=== PATIENT | female | born 1965 | race Hispanic/Latino ===

== ENCOUNTER 2020-10-28 03:35 | Emergency (ER) | payer BC ==
[2020-10-28 05:18] VITALS: BP 145/95
[2020-10-28] MEDS ORDERED: IBUPROFEN 400 MG TAB PO ONE (05:43)
[2020-10-28] MEDS ORDERED: hydrOXYzine PAMOATE 25 MG CAP PO ONE (05:43)
--- NOTE | 2020-10-28 05:43 | Emergency Department Report ---
ED General Adult HPI - General Chief complaint: Pain General Stated complaint: OVER STRESSED PAIN EVERYWHERE Source: patient Mode of arrival: Ambulatory Limitations: No Limitations - History of Present Illness Initial comments: Patient is a 55-year-old white female with a history of chronic anxiety and depression who presents to the ED with diffuse body aches and pains, stating "I am extremely stressed because of my family trying to steal my money" for over 3 months. Patient states that she currently has no place to live because of stressful family situation and states that she would like a prescription of Klonopin or Xanax "to calm her nerves". Patient denies chest pain, shortness of breath, dizziness, syncope, nausea and vomiting, headache, fever and chills, change in vision, suicidal or homicidal ideation, hallucinations or cough. MD Complaint: Anxious, stressed out due to family problems -: Gradual, month(s) (3) Radiation: non-radiation Severity scale (0 -10): 4 Quality: aching Consistency: constant Improves with: none Worsens with: none Associated Symptoms: denies other symptoms. denies: confusion, chest pain, cough, diaphoresis, headaches, malaise, nausea/vomiting, rash, seizure, shortness of breath, syncope, weakness Treatments Prior to Arrival: none - Related Data Previous Rx's Medication Instructions Recorded Last Taken Type Amoxicillin [Amoxicillin TAB] 875 mg PO BID #20 tablet 04/06/13 Unknown Rx Fluticasone Propionate [Flonase] 16 gm NS QDAY #1 spray.susp 04/06/13 Unknown Rx Prednisone 60 mg PO QDAY #9 tablet 04/06/13 Unknown Rx traMADoL [Ultram] 50 mg PO Q4HR PRN #15 tablet 04/06/13 Unknown Rx hydrOXYzine PAMOATE [Vistaril] 25 mg PO Q6HR PRN #30 capsule 10/28/20 Unknown Rx Allergies Allergy/AdvReac Type Severity Reaction Status Date / Time No Known Allergies Allergy Verified 04/06/13 06:27 ED Review of Systems ROS: Stated complaint: OVER STRESSED PAIN EVERYWHERE Other details as noted in HPI Constitutional: denies: chills, fever Eyes: denies: eye pain, eye discharge, vision change ENT: denies: ear pain, throat pain Respiratory: denies: cough, shortness of breath, wheezing Cardiovascular: denies: chest pain, palpitations Endocrine: no symptoms reported Gastrointestinal: denies: abdominal pain, nausea, diarrhea Genitourinary: denies: urgency, dysuria, discharge Musculoskeletal: arthralgia, myalgia. denies: back pain, joint swelling Skin: denies: rash, lesions Neurological: denies: headache, weakness, paresthesias Psychiatric: anxiety. denies: depression Hematological/Lymphatic: denies: easy bleeding, easy bruising ED Past Medical Hx - Past Medical History Previous Medical History?: No Hx Psychiatric Treatment: Yes (Anxiety and depression) - Surgical History Past Surgical History?: No - Social History Smoking Status: Current Every Day Smoker Substance Use Type: None - Medications Home Medications: Home Medications Medication Instructions Recorded Confirmed Last Taken Type Amoxicillin [Amoxicillin TAB] 875 mg PO BID #20 tablet 04/06/13 Unknown Rx Fluticasone Propionate [Flonase] 16 gm NS QDAY #1 spray.susp 04/06/13 Unknown Rx Prednisone 60 mg PO QDAY #9 tablet 04/06/13 Unknown Rx traMADoL [Ultram] 50 mg PO Q4HR PRN #15 tablet 04/06/13 Unknown Rx hydrOXYzine PAMOATE [Vistaril] 25 mg PO Q6HR PRN #30 capsule 10/28/20 Unknown Rx ED Physical Exam - General Limitations: No Limitations General appearance: alert, in no apparent distress - Head Head exam: Present: atraumatic, normocephalic, normal inspection - Eye Eye exam: Present: normal appearance, PERRL, EOMI Pupils: Present: normal accommodation - ENT ENT exam: Present: normal exam, normal orophraynx, mucous membranes moist, TM's normal bilaterally, normal external ear exam - Neck Neck exam: Present: normal inspection, full ROM - Respiratory Respiratory exam: Present: normal lung sounds bilaterally. Absent: respiratory distress, wheezes, rales, stridor, chest wall tenderness, accessory muscle use, decreased breath sounds, prolonged expiratory - Cardiovascular Cardiovascular Exam: Present: normal rhythm, tachycardia, normal heart sounds. Absent: systolic murmur, diastolic murmur, rubs, gallop - GI/Abdominal GI/Abdominal exam: Present: soft, normal bowel sounds. Absent: tenderness, guarding, rebound, hyperactive bowel sounds, organomegaly - Extremities Exam Extremities exam: Present: normal inspection, full ROM, normal capillary refill - Back Exam Back exam: Present: normal inspection, full ROM. Absent: tenderness, CVA tenderness (R), CVA tenderness (L), muscle spasm, paraspinal tenderness - Neurological Exam Neurological exam: Present: alert, oriented X3, CN II-XII intact, normal gait, reflexes normal - Psychiatric Psychiatric exam: Present: normal affect, depressed, anxious. Absent: homicidal ideation, suicidal ideation - Skin Skin exam: Present: warm, dry, intact, normal color. Absent: rash ED Course Vital Signs 10/28/20 05:16 Temperature 97.9 F Pulse Rate 105 H Respiratory 18 Rate Blood Pressure 145/95 O2 Sat by Pulse 99 Oximetry ED Medical Decision Making - Medical Decision Making This is a 55-year-old white female with a history of chronic anxiety and depression who presents to the ED with diffuse body aches and pains, stating "I am extremely stressed because of my family trying to steal my money" for over 3 months. Patient states that she currently has no place to live because of stressful family situation and states that she would like a prescription of Klonopin or Xanax "to calm her nerves". In the ED, patient is alert and oriented x3 and is not in any distress, anxious and tachycardic in triage. Patient was treated for pain and also given Vistaril in the ED. Patient will discharge home and given a referral to primary care physician and mental health clinic for further evaluation. Patient was advised to follow-up with a primary care physician in 3 to 5 days for reevaluation. Patient was advised to return to the ED immediately if symptoms get worse. - Differential Diagnosis Anxiety; panic attacks; chronic depression; chronic pain Critical care attestation.: If time is entered above; I have spent that time in minutes in the direct care of this critically ill patient, excluding procedure time. ED Disposition Clinical Impression: Anxiety as acute reaction to gross stress Chronic pain Qualifiers: Chronic pain type: chronic pain syndrome Qualified Code(s): G89.4 - Chronic pain syndrome Disposition: TO HOME OR SELFCARE Is pt being admited?: No Does the pt Need Aspirin: No Condition: Stable Instructions: Generalized Anxiety Disorder, Adult, Pain Without a Known Cause Additional Instructions: Take medication with food, drink plenty of fluids and follow-up with your primary care physician in 3 to 5 days for reevaluation. Return to the ED immediately if symptoms get worse. Prescriptions: hydrOXYzine PAMOATE [Vistaril] 25 mg PO Q6HR PRN #30 capsule PRN Reason: Anxiety Referrals: [facility] [Provider Group] - 3-5 Days [facility] [Outside] - 3-5 Days Time of Disposition: 05:42 Print Language: BENINESE
== END 2020-10-28 06:15 | disposition home or self-care (01) ==
LOC: ED 03:35
DX: F41.9 Anxiety disorder, unspecified (principal); G89.29 Other chronic pain; F32.9 Major depressive disorder, single episode, unspecified; F17.200 Nicotine dependence, unspecified, uncomplicated; Z79.899 Other long term (current) drug therapy
CPT/HCPCS: 99282; Q0177

== ENCOUNTER 2021-03-29 06:41 | Emergency (ER) | payer SELFPAY ==
--- NOTE | 2021-03-29 06:52 | Emergency Department Report ---
ED Neck Pain/Injury HPI - General Chief Complaint: Neck Pain/Injury Stated Complaint: SHOULDER AND NECK PAIN Time Seen by Provider: 03/29/21 06:50 Mode of arrival: Ambulatory Limitations: No Limitations - History of Present Illness Initial Comments: Patient presents with neck pain and back pain. She states that she was at work on 21 March. She was told that she had to lift a 70 pound box above her head. She states that she hurt her neck doing this. She is subsequent developed ongoing pain in the neck and upper back. She states that her neck feels like it is "moving." She states her neck "snaps and pops." She states that the pain radiates into her upper back. She states that she has lower back pain. She has not been able to sleep. She states that she just has a headache and just cannot get comfortable. She tried to rest but that did not help. She came here for evaluation. Patient states that she knows that there were some OSHA standards that were violated. She then goes on to state that multiple people are stealing from her job. Regardless, she is here for this pain. She has not taken anything for it as of yet. She has not seen work comp. - Related Data Previous Rx's Medication Instructions Recorded Last Taken Type Amoxicillin [Amoxicillin TAB] 875 mg PO BID #20 tablet 04/06/13 Unknown Rx Fluticasone Propionate [Flonase] 16 gm NS QDAY #1 spray.susp 04/06/13 Unknown Rx Prednisone 60 mg PO QDAY #9 tablet 04/06/13 Unknown Rx traMADoL [Ultram] 50 mg PO Q4HR PRN #15 tablet 04/06/13 Unknown Rx hydrOXYzine PAMOATE [Vistaril] 25 mg PO Q6HR PRN #30 capsule 10/28/20 Unknown Rx Ibuprofen [Motrin] 600 mg PO Q8H PRN #30 tablet 03/29/21 Unknown Rx Metaxalone [Skelaxin] 800 mg PO TID #9 tablet 03/29/21 Unknown Rx Allergies Allergy/AdvReac Type Severity Reaction Status Date / Time No Known Allergies Allergy Verified 04/06/13 06:27 ED Review of Systems ROS: Stated complaint: SHOULDER AND NECK PAIN Other details as noted in HPI Comment: All other systems reviewed and negative Constitutional: denies: fever Eyes: denies: vision change ENT: denies: epistaxis Respiratory: denies: cough Cardiovascular: denies: chest pain Endocrine: denies: unexplained weight loss Gastrointestinal: denies: hematemesis Genitourinary: denies: hematuria Musculoskeletal: as per HPI Skin: denies: rash Neurological: as per HPI Hematological/Lymphatic: denies: easy bruising ED Past Medical Hx - Past Medical History Previous Medical History?: Yes Hx Psychiatric Treatment: Yes (Anxiety and depression) - Surgical History Past Surgical History?: No - Family History Family history: other (Anxiety) - Social History Smoking Status: Current Every Day Smoker (We discussed tobacco cessation x3 mi nutes) Substance Use Type: None - Medications Home Medications: Home Medications Medication Instructions Recorded Confirmed Last Taken Type Amoxicillin [Amoxicillin TAB] 875 mg PO BID #20 tablet 04/06/13 Unknown Rx Fluticasone Propionate [Flonase] 16 gm NS QDAY #1 spray.susp 04/06/13 Unknown Rx Prednisone 60 mg PO QDAY #9 tablet 04/06/13 Unknown Rx traMADoL [Ultram] 50 mg PO Q4HR PRN #15 tablet 04/06/13 Unknown Rx hydrOXYzine PAMOATE [Vistaril] 25 mg PO Q6HR PRN #30 capsule 10/28/20 Unknown Rx Ibuprofen [Motrin] 600 mg PO Q8H PRN #30 tablet 03/29/21 Unknown Rx Metaxalone [Skelaxin] 800 mg PO TID #9 tablet 03/29/21 Unknown Rx ED Physical Exam - General Limitations: No Limitations, Other (Pulse ox noted normal at 97%) General appearance: alert, in no apparent distress, other (Patient has psychomotor agitation with pressured speech and flight of ideas. She cannot sit still. Behavior is consistent with tweaking) - Head Head exam: Present: atraumatic, normocephalic - Eye Eye exam: Present: normal appearance, EOMI - ENT ENT exam: Present: normal orophraynx, normal external ear exam - Neck Neck exam: Present: normal inspection, tenderness (Diffuse paraspinous). Absent: meningismus - Respiratory Respiratory exam: Present: normal lung sounds bilaterally. Absent: respiratory distress - Cardiovascular Cardiovascular Exam: Present: regular rate (106 on exam), normal rhythm - GI/Abdominal GI/Abdominal exam: Present: soft. Absent: tenderness - Extremities Exam Extremities exam: Present: full ROM, normal capillary refill - Back Exam Back exam: Present: full ROM, paraspinal tenderness (Diffuse thoracic and lumbar). Absent: vertebral tenderness - Neurological Exam Neurological exam: Present: alert, oriented X3, CN II-XII intact, normal gait, reflexes normal, other (Negative straight leg raise). Absent: motor sensory deficit - Psychiatric Psychiatric exam: Present: anxious, other (As above) - Skin Skin exam: Present: warm, dry ED Course - Reevaluation(s) Reevaluation #1: 03/29/21 07:07 Patient was discharged ED Medical Decision Making - Medical Decision Making Patient presents with a remote neck and back injury from lifting. I have no concern for fracture as she had no direct trauma. Plain films would not be beneficial at this time. Patient denies any neurologic symptoms and has no neurologic deficit. She can follow-up with work comp for consideration of MRI as needed and indicated. She does have some evidence of psychomotor agitation with pressured speech and flight of ideas. Regardless, she is not suicidal or homicidal. She is not responding to extraneous stimuli. She is not delusional. I believe this can be managed as an outpatient. Whether there is some other contributing factor in that realm is unclear. Regardless, she does not need emergent surgery and certainly does not have symptoms that would suggest cord injury, cauda equina, or compression. Critical Care Time: No Critical care attestation.: If time is entered above; I have spent that time in minutes in the direct care of this critically ill patient, excluding procedure time. ED Disposition Clinical Impression: Upper back strain Qualifiers: Encounter type: initial encounter Qualified Code(s): S29.012A - Strain of muscle and tendon of back wall of thorax, initial encounter Acute cervical myofascial strain Qualifiers: Encounter type: initial encounter Qualified Code(s): S16.1XXA - Strain of muscle, fascia and tendon at neck level, initial encounter Disposition: HOME / SELF CARE / HOMELESS Is pt being admited?: No Condition: Stable Instructions: How to Use Cold Therapy, [id number], Muscle Strain, [id number] Additional Instructions: Try ice and heat. Drink fluids. Follow-up with your Workmen's Comp. Return for any problems or concerns. Use medication as discussed and directed. Prescriptions: Ibuprofen [Motrin] 600 mg PO Q8H PRN #30 tablet PRN Reason: Pain Metaxalone [Skelaxin] 800 mg PO TID #9 tablet Referrals: PRIMARY CARE, [Referring] - 3-5 Days
[2021-03-29 07:24] VITALS: BP 130/85
== END 2021-03-29 07:24 | disposition home or self-care (01) ==
LOC: ED 06:41
DX: S29.012A Strain of muscle and tendon of back wall of thorax, initial encounter (principal); S16.1XXA Strain of muscle, fascia and tendon at neck level, initial encounter; F17.200 Nicotine dependence, unspecified, uncomplicated; F41.9 Anxiety disorder, unspecified; X58.XXXA Exposure to other specified factors, initial encounter; Y93.89 Activity, other specified; Y92.89 Other specified places as the place of occurrence of the external cause; Y99.8 Other external cause status
CPT/HCPCS: 99282

== ENCOUNTER 2021-06-28 21:37 | Emergency (ER) | payer SELFPAY ==
[2021-06-28 23:11] LABS: Basophils # (Auto) 0.1 K/mm3 (0.0-0.1); Basophils % (Auto) 1.2 % (0.0-1.8); Eosinophils # (Auto) 0.1 K/mm3 (0.0-0.4); Eosinophils % (Auto) 1.1 % (0.0-4.3); Hematocrit 37.9 % (30.3-42.9); Lymphocytes # (Auto) 3.4 K/mm3 (1.2-5.4); Lymphocytes % (Auto) 34.9 % (13.4-35.0); Mean Corpuscular HGB Conc 34 % (30-34); Mean Corpuscular Volume 94 fl (79-97); Monocytes # (Auto) 0.9 K/mm3 (0.0-0.8); Monocytes % (Auto) 8.9 % (0.0-7.3); Platelet Count 331 K/mm3 (140-440); Red Blood Count 4.04 M/mm3 (3.65-5.03); Red Cell Distribution Width 12.4 % (13.2-15.2)
[2021-06-28 23:25] LABS: Blood Urea Nitrogen 12 mg/dL (7-17); Hemolysis Index 4
[2021-06-28 23:30] LABS: BUN/Creatinine Ratio 17
--- NOTE | 2021-06-29 02:55 | Emergency Department Report ---
ED Psych HPI - General Chief Complaint: Psych Stated Complaint: CHEST PAIN ,STRESS Time Seen by Provider: 06/28/21 22:36 Source: patient Mode of arrival: Stretcher Limitations: No Limitations - History of Present Illness Initial Comments: Crying uncontrollably. Stating that she is very stressed and at times she feels that someone is out to get her. Denies SI nor HI. 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 MD Complaint: feels depressed, other (paranoid ) -: Gradual, days(s) Associated Psychiatric Symptoms: depression, delusions History of same: Yes Quality: constant Improves With: none Worsens With: none Associated Symptoms: denies: confusion, headache - Related Data Previous Rx's Medication Instructions Recorded Last Taken Type Amoxicillin [Amoxicillin TAB] 875 mg PO BID #20 tablet 04/06/13 Unknown Rx Fluticasone Propionate [Flonase] 16 gm NS QDAY #1 spray.susp 04/06/13 Unknown Rx Prednisone 60 mg PO QDAY #9 tablet 04/06/13 Unknown Rx traMADoL [Ultram] 50 mg PO Q4HR PRN #15 tablet 04/06/13 Unknown Rx hydrOXYzine PAMOATE [Vistaril] 25 mg PO Q6HR PRN #30 capsule 10/28/20 Unknown Rx Ibuprofen [Motrin] 600 mg PO Q8H PRN #30 tablet 03/29/21 Unknown Rx Metaxalone [Skelaxin] 800 mg PO TID #9 tablet 03/29/21 Unknown Rx Allergies Allergy/AdvReac Type Severity Reaction Status Date / Time No Known Allergies Allergy Verified 04/06/13 06:27 ED Review of Systems ROS: Stated complaint: CHEST PAIN ,STRESS Other details as noted in HPI Constitutional: denies: chills, fever Eyes: denies: eye pain, eye discharge, vision change ENT: denies: ear pain, throat pain Respiratory: denies: cough, shortness of breath, wheezing Cardiovascular: denies: chest pain, palpitations Endocrine: no symptoms reported Gastrointestinal: denies: abdominal pain, nausea, diarrhea Genitourinary: denies: urgency, dysuria, discharge Musculoskeletal: denies: back pain, joint swelling, arthralgia Skin: denies: rash, lesions Neurological: denies: headache, weakness, paresthesias Psychiatric: denies: anxiety, depression Hematological/Lymphatic: denies: easy bleeding, easy bruising ED Past Medical Hx - Past Medical History Previous Medical History?: Yes Hx Psychiatric Treatment: Yes (Anxiety and depression, PTSD) - Surgical History Past Surgical History?: No - Social History Smoking Status: Never Smoker Substance Use Type: None - Medications Home Medications: Home Medications Medication Instructions Recorded Confirmed Last Taken Type Amoxicillin [Amoxicillin TAB] 875 mg PO BID #20 tablet 04/06/13 Unknown Rx Fluticasone Propionate [Flonase] 16 gm NS QDAY #1 spray.susp 04/06/13 Unknown Rx Prednisone 60 mg PO QDAY #9 tablet 04/06/13 Unknown Rx traMADoL [Ultram] 50 mg PO Q4HR PRN #15 tablet 04/06/13 Unknown Rx hydrOXYzine PAMOATE [Vistaril] 25 mg PO Q6HR PRN #30 capsule 10/28/20 Unknown Rx Ibuprofen [Motrin] 600 mg PO Q8H PRN #30 tablet 03/29/21 Unknown Rx Metaxalone [Skelaxin] 800 mg PO TID #9 tablet 03/29/21 Unknown Rx ED Physical Exam - General Limitations: No Limitations General appearance: alert, anxious, other (crying ) - Head Head exam: Present: atraumatic, normocephalic - Eye Eye exam: Present: normal appearance - ENT ENT exam: Present: mucous membranes moist - Neck Neck exam: Present: normal inspection - Respiratory Respiratory exam: Present: normal lung sounds bilaterally. Absent: respiratory distress - Cardiovascular Cardiovascular Exam: Present: regular rate, normal rhythm. Absent: systolic murmur, diastolic murmur, rubs, gallop - GI/Abdominal GI/Abdominal exam: Present: soft, normal bowel sounds - Extremities Exam Extremities exam: Present: normal inspection - Back Exam Back exam: Present: normal inspection - Neurological Exam Neurological exam: Present: alert, oriented X3 - Psychiatric Psychiatric exam: Present: depressed, anxious, other (delusions ) - Expanded Psychiatric Exam Expanded Focused psych exam: Present: paranoid, restlessness - Skin Skin exam: Present: warm, dry, intact, normal color. Absent: rash ED Course Vital Signs 06/28/21 06/28/21 06/28/21 21:56 22:04 22:14 Temperature 98.2 F 98.6 F Pulse Rate 99 H 88 Respiratory 18 20 Rate Blood Pressure 143/79 Blood Pressure [Left] Blood Pressure 133/80 [Right] O2 Sat by Pulse 100 100 100 Oximetry 06/29/21 06/29/21 06/29/21 02:35 08:58 11:12 Temperature 98.8 F 97.9 F Pulse Rate 79 64 Respiratory 16 16 Rate Blood Pressure Blood Pressure [Left] Blood Pressure 110/68 114/79 [Right] O2 Sat by Pulse 98 99 98 Oximetry 06/29/21 06/29/21 06/29/21 20:34 20:36 21:38 Temperature 98.7 F Pulse Rate 63 Respiratory 20 Rate Blood Pressure Blood Pressure 92/43 92/46 [Left] Blood Pressure [Right] O2 Sat by Pulse 95 100 Oximetry 06/30/21 06/30/21 06/30/21 02:31 11:10 20:10 Temperature 98.3 F 97.6 F 98.8 F Pulse Rate 54 L 79 63 Respiratory 16 18 17 Rate Blood Pressure Blood Pressure 124/88 112/72 107/60 [Left] Blood Pressure [Right] O2 Sat by Pulse 100 99 100 Oximetry 07/01/21 02:17 Temperature 97.9 F Pulse Rate 65 Respiratory 16 Rate Blood Pressure Blood Pressure 137/74 [Left] Blood Pressure [Right] O2 Sat by Pulse 100 Oximetry ED Medical Decision Making - Lab Data Result diagrams: 06/28/21 22:36 06/28/21 22:36 Critical care attestation.: If time is entered above; I have spent that time in minutes in the direct care of this critically ill patient, excluding procedure time. ED Disposition Clinical Impression: Depression, Delusions Disposition: 30 STILL A PATIENT Is pt being admited?: No Does the pt Need Aspirin: No Condition: Stable Referrals: JENNA CORONEL MD [Primary Care Provider] - 3-5 Days
--- NOTE | 2021-06-29 10:14 | Consultation ---
History of Present Illness - Reason for Consult Consult date: 06/29/21 Reason for consult: delusional - History of Present Psychiatric Illness HPI: Crying uncontrollably. Stating that she is very stressed and at times she feels that someone is out to get her. Denies SI nor HI. 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 The patient was seen today. She is hyperverbal, paranoid and having grandiose delusions. She says she's been overwhelmed and stressed and can't handle people. The patient says people are trying to blow the house up. She then rants off names. 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 She says she's unemployed, but then says "I actually own way too much stuff." The patient denies past psych history or being on any psych meds. She denies SI/HI or hallucinations of any kind. She denies any illicit drug use outside of THC. She denies alcohol or nicotine. She first says she's homeless, she then says "not really though if I own all those properties." PAST PSYCHIATRIC HISTORY Diagnoses: Denies Suicide attempts or Self-harm behavior: Denies Prior psychiatric hospitalizations: Denies Substance Abuse history: Denies Previous psychiatric medications tried: Denies Outpatient treatment: Denies PAST MEDICAL HISTORY: None reported Family Psychiatric History: None reported or documented SOCIAL HISTORY Living arrangement: homeless Marital status: Single Employment status: Unemployed REVIEW OF SYSTEMS Constitutional: Negative for weight loss ENT: Negative for stridor Respiratory: Negative for cough or hemoptysis All other systems reviewed and are negative MENTAL STATUS EXAMINATION General Appearance and Behavior: Age appropriate, good hygiene, wearing appropriate clothes, good eye contact, anxious, cooperative Cooperation: Participating/engaged, but Guarded Psychomotor Behavior: Psychomotor normal Mood: stressed Affect and affective range: congruent with stated mood Thought Process: disorganized Thought Content: delusions Speech: hyperverbal Suicidal Ideation: Denies Homicidal Ideation: Denies Hallucinations: Denies Delusions: None elicited Impulse Control: Normal Insight and Judgment: Limited insight and judgment Memory: Limited Attention: attentive Orientation: Alert, oriented Assessment and Plan Delusional Disorder Treatment Plan 1013 Olanzapine 5mg po daily Doxepin 10mg po qhs Vistaril 50mg po BID prn anxiety Sitter: per primary Medical: defer to primary Disposition: recommend acute psychiatric inpatient treatment Will follow. Thanks Case staffed with Dr. Dc Medications and Allergies Allergies Allergy/AdvReac Type Severity Reaction Status Date / Time No Known Allergies Allergy Verified 04/06/13 06:27 Home Medications Medication Instructions Recorded Confirmed Last Taken Type Amoxicillin [Amoxicillin TAB] 875 mg PO BID #20 tablet 04/06/13 Unknown Rx Fluticasone Propionate [Flonase] 16 gm NS QDAY #1 spray.susp 04/06/13 Unknown Rx Prednisone 60 mg PO QDAY #9 tablet 04/06/13 Unknown Rx traMADoL [Ultram] 50 mg PO Q4HR PRN #15 tablet 04/06/13 Unknown Rx hydrOXYzine PAMOATE [Vistaril] 25 mg PO Q6HR PRN #30 capsule 10/28/20 Unknown Rx Ibuprofen [Motrin] 600 mg PO Q8H PRN #30 tablet 03/29/21 Unknown Rx Metaxalone [Skelaxin] 800 mg PO TID #9 tablet 03/29/21 Unknown Rx Mental Status Exam - Vital signs Last Vital Signs Temp 98.8 F 06/29/21 02:35 Pulse 79 06/29/21 02:35 Resp 16 06/29/21 02:35 BP 110/68 06/29/21 02:35 Pulse Ox 99 06/29/21 08:58 Results Result Diagrams: 06/28/21 22:36 06/28/21 22:36 Abnormal lab results 06/28/21 06/28/21 06/28/21 Range/Units 22:36 22:36 22:36 RDW (13.2-15.2) % [place] % (Auto) (0.0-7.3) % [place] # (Auto) (0.0-0.8) K/mm3 Chloride 107.2 H (98-107) mmol/L Salicylates < 0.3 L (2.8-20.0) mg/dL Acetaminophen 5.0 L (10.0-30.0) ug/mL 06/28/21 Range/Units 22:36 RDW 12.4 L (13.2-15.2) % [place] % (Auto) 8.9 H (0.0-7.3) % [place] # (Auto) 0.9 H (0.0-0.8) K/mm3 Chloride (98-107) mmol/L Salicylates (2.8-20.0) mg/dL Acetaminophen (10.0-30.0) ug/mL All other labs normal.
[2021-06-29] MEDS ORDERED: hydrOXYzine PAMOATE 25 MG CAP PO PRN (11:00)
[2021-06-29 11:17] LABS: Benzodiazepines Screen,Urine Negative; Cocaine Screen,Urine Negative; Methadone Screen,Urine Negative; Opiate Screen,Urine Negative
[2021-06-29 11:43] LABS: Bilirubin,Urine NEG (Negative); Blood,Urine NEG (Negative); Color,Urine Yellow (Yellow); Mucus,Urine FEW /HPF; Protein,Urine <15 mg/dL mg/dL (Negative); Urobilinogen,Urine < 2.0 mg/dL (<2.0); WBC,Urine < 1.0 /HPF (0.0-6.0)
[2021-06-29 11:47] LABS: Amphetamine Screen,Urine Positive; Cannabinoid Screen,Urine Positive
[2021-06-29] MEDS: DOXEPIN 10 MG CAP PO SCH (22:00)
--- NOTE | 2021-06-30 11:23 | Progress Note ---
Subjective - Reason for Consult Consult date: 06/30/21 Reason for consult: psychosis - Chief Complaint Chief complaint: The patient was seen today. She is still delusional and paranoid. She is ranting about "intellectual property rights" and being attacked and put in physical danger. She denies SI/HI or hallucinations. REVIEW OF SYSTEMS Constitutional: Negative for weight loss ENT: Negative for stridor Respiratory: Negative for cough or hemoptysis All other systems reviewed and are negative MENTAL STATUS EXAMINATION General Appearance and Behavior: Age appropriate, good hygiene, wearing appropri ate clothes, good eye contact, anxious, cooperative Cooperation: Participating/engaged, but Guarded Psychomotor Behavior: Psychomotor normal Mood: stressed Affect and affective range: congruent with stated mood Thought Process: disorganized Thought Content: delusions Speech: hyperverbal Suicidal Ideation: Denies Homicidal Ideation: Denies Hallucinations: Denies Delusions: None elicited Impulse Control: Normal Insight and Judgment: Limited insight and judgment Memory: Limited Attention: attentive Orientation: Alert, oriented Assessment and Plan Delusional Disorder Treatment Plan 1013 Increase Olanzapine 10mg po daily Vistaril 50mg po BID prn anxiety Sitter: per primary Medical: defer to primary Disposition: recommend acute psychiatric inpatient treatment Will follow. Thanks Case staffed with Dr. Dc Mental Status Exam - Vital signs Last Vital Signs Temp 97.6 F 06/30/21 11:10 Pulse 79 06/30/21 11:10 Resp 18 06/30/21 11:10 BP 112/72 06/30/21 11:10 Pulse Ox 99 06/30/21 11:10
--- NOTE | 2021-06-30 15:23 | Emergency Department Report ---
Blank Doc - Documentation Documentation: Patient is a 56-year-old female here with delusions and paranoia. She is curr ently on a 1013. I have rounded on patient. She has no acute complaints at this time.
[2021-06-30] MEDS: DOXEPIN 10 MG CAP PO SCH (22:00)
--- NOTE | 2021-07-01 09:16 | Progress Note ---
Subjective - Reason for Consult Consult date: 07/01/21 Reason for consult: psychosis - Chief Complaint Chief complaint: The patient was seen today. She is still delusional and paranoid. She is asking about her intellectual properties, four cell phones and four bank accounts. 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 The patient denies SI/HI. She is later observed talking to herself, saying "I am the eye-eye and I'm not crazy." REVIEW OF SYSTEMS Constitutional: Negative for weight loss ENT: Negative for stridor Respiratory: Negative for cough or hemoptysis All other systems reviewed and are negative MENTAL STATUS EXAMINATION General Appearance and Behavior: Age appropriate, good hygiene, wearing appropriate clothes, good eye contact, anxious, cooperative Cooperation: Participating/engaged, but Guarded Psychomotor Behavior: Psychomotor normal Mood: stressed Affect and affective range: congruent with stated mood Thought Process: disorganized Thought Content: delusions Speech: hyperverbal Suicidal Ideation: Denies Homicidal Ideation: Denies Hallucinations: Denies Delusions: None elicited Impulse Control: Normal Insight and Judgment: Limited insight and judgment Memory: Limited Attention: attentive Orientation: Alert, oriented Assessment and Plan Delusional Disorder Treatment Plan 1013 Increase Olanzapine 15mg po daily Start Depakote DR 125mg po BID Vistaril 50mg po BID prn anxiety Sitter: per primary Medical: defer to primary Disposition: recommend acute psychiatric inpatient treatment Will follow. Thanks Case staffed with Dr. Dc Mental Status Exam - Vital signs Last Vital Signs Temp 97.9 F 07/01/21 02:17 Pulse 65 07/01/21 02:17 Resp 16 07/01/21 02:17 BP 137/74 07/01/21 02:17 Pulse Ox 100 07/01/21 02:17
[2021-07-01] MEDS ORDERED: DIVALPROEX DR 125 MG TAB PO SCH (10:00)
--- NOTE | 2021-07-01 12:26 | Event Note ---
Date: 07/01/21 Patient continues to be delusional and is currently being managed by psychiatry. There are no significant recurrences overnight and her vital signs remain stable. She currently has no medical complaints. We will continue to monitor medically while awaiting psychiatric disposition.
[2021-07-01 20:53] VITALS: BP 116/46
== END 2021-07-01 20:45 | disposition still patient (30) ==
LOC: EEVIPCON 21:37 → ED 21:37
DX: F32.9 Major depressive disorder, single episode, unspecified (principal); R07.89 Other chest pain; Z20.822 Contact with and (suspected) exposure to COVID-19; F22 Delusional disorders; F41.9 Anxiety disorder, unspecified; Z79.899 Other long term (current) drug therapy
CPT/HCPCS: 36415; 80048; 80307; 81001; 85025; 99285; U0003; 80320; G0480